=== PATIENT | male | born 1940 | race Caucasian/White ===

== ENCOUNTER 2021-10-27 09:11 | Inpatient (IN) | payer MEDICARE, OTHER ==
[2021-10-27] VITALS (7 sets, daily range): BP systolic 125–139; BP diastolic 66–76
[~2021-10-27] VITALS: Ht 180.3 cm; Wt 49.0 kg
[2021-10-27 10:21] LABS: CLARITY,URINE SL CLOUDY (CLEAR); COLOR,URINE RED (YELLOW); KETONES,URINE 2+ (NEGATIVE); LEUKOCYTE ESTERASE ,URINE NEGATIVE (NEGATIVE); NITRITE,URINE NEGATIVE (NEGATIVE); PROTEIN,URINE DIPSTICK 1+ (NEGATIVE); URINE UROBILINOGEN 1 mg/dL (0.2 - 1)
[2021-10-27 10:22] LABS: BACTERIA,URINE RARE /HPF; RBC,URINE >50 /HPF (0-5)
[2021-10-27] MEDS ORDERED: DOCUSATE SODIUM 100 MG CAP PO PRN (14:15)
[2021-10-27] MEDS ORDERED: ONDANSETRON HCL INJ 2MG/ML 2ML 2 MG/ML VIAL IV PRN (14:15)
[2021-10-27 14:22] LABS: BASOPHILS % 0.3 % (0.0-1.0); EOSINOPHILS % 0.4 % (0.0-6.0); HEMATOCRIT 41.4 % (38.2-49.6); HEMOGLOBIN 14.1 g/dL (14.0-18.0); LYMPHOCYTES # (AUTO) 1.2 (1.0-3.2); LYMPHOCYTES % 15.9 % (18.0-39.1); MEAN CORPUSCULAR HEMOGLOBIN 31.2 pg (28-32); MEAN CORPUSCULAR HGB CONC 34.1 g/dL (31-35); MEAN CORPUSCULAR VOLUME 91.6 fL (81-99); MONOCYTES # (AUTO) 0.7 (0.2-0.8); MONOCYTES % 8.6 % (4.4-11.3); NEUTROPHILS # (AUTO) 5.8 (2.1-6.9); NEUTROPHILS % 74.5 % (38.7-80.0); PLATELET COUNT 179 x10e3/uL (140-360); RED BLOOD COUNT 4.52 x10e6/uL (4.3-5.7)
[2021-10-27 14:38] LABS: ANION GAP 12.9 mmol/L (8-16); CALCIUM 9.6 mg/dL (8.4-10.2); CREATININE, SERUM 0.72 mg/dL (0.72-1.25); POTASSIUM 4.9 mmol/L (3.5-5.1)
[2021-10-27] MEDS: FAMOTIDINE 20 MG TAB PO SCH (16:30)
[2021-10-27] MEDS ORDERED: MELATONIN 3 MG TAB PO PRN (21:00)
[2021-10-27] MEDS: TAMSULOSIN HCL 0.4 MG CAP PO SCH (21:09)
[2021-10-28] VITALS: BP 111/69
[2021-10-28 04:00] VITALS: BP 112/66
[2021-10-28 04:59] LABS: BASOPHILS % 0.3 % (0.0-1.0); EOSINOPHILS # (AUTO) 0.1 (0.0-0.4); EOSINOPHILS % 1.1 % (0.0-6.0); HEMATOCRIT 38.6 % (38.2-49.6); HEMOGLOBIN 13.2 g/dL (14.0-18.0); LYMPHOCYTES # (AUTO) 1.5 (1.0-3.2); LYMPHOCYTES % 20.7 % (18.0-39.1); MEAN CORPUSCULAR HEMOGLOBIN 31.4 pg (28-32); MEAN CORPUSCULAR HGB CONC 34.2 g/dL (31-35); MEAN CORPUSCULAR VOLUME 91.7 fL (81-99); MONOCYTES # (AUTO) 0.7 (0.2-0.8); MONOCYTES % 9.6 % (4.4-11.3); NEUTROPHILS # (AUTO) 4.9 (2.1-6.9); NEUTROPHILS % 67.9 % (38.7-80.0); PLATELET COUNT 160 x10e3/uL (140-360); RED BLOOD COUNT 4.21 x10e6/uL (4.3-5.7); RED CELL DISTRIBUTION WIDTH 12.9 % (11.7-14.4)
[2021-10-28 05:25] LABS: ANION GAP 11.8 mmol/L (8-16); CALCIUM 9.2 mg/dL (8.4-10.2); CREATININE, SERUM 0.65 mg/dL (0.72-1.25); POTASSIUM 3.8 mmol/L (3.5-5.1)
[2021-10-28] MEDS: FAMOTIDINE 20 MG TAB PO SCH ×2 (07:30→16:30)
[2021-10-28 08:35] VITALS: BP 120/62
[2021-10-28] MEDS: MULTIVITAMINS/MINERALS TAB PO SCH (09:00)
[2021-10-28] MEDS ORDERED: SODIUM CHLORIDE 0.9% 250ML 250 ML ONE (09:04)
[2021-10-28] MEDS: CEFTRIAXONE 1 GM in SODIUM CHLORIDE 0.9% 50ML 50 ML IV SCH (10:00)
[2021-10-28 12:13] VITALS: BP 133/68
[2021-10-28] MEDS ORDERED: PROPOFOL IV EMULSION 10 MG/ML 20 ML VIAL ONE (13:06)
[2021-10-28] MEDS ORDERED: EPHEDRINE SULFATE INJ 50 MG/ML VIAL ONE (13:06)
[2021-10-28] MEDS ORDERED: POVIDONE IODINE 0.05% 0.05 % ML PO ONE (13:06)
[2021-10-28] MEDS ORDERED: ONDANSETRON HCL INJ 2MG/ML 2ML 2 MG/ML VIAL ONE (13:06)
[2021-10-28] MEDS ORDERED: LIDOCAINE HCL 2% LOCAL INJ 5 ML SDV VIAL INJ ONE (13:06)
[2021-10-28] MEDS ORDERED: DEXAMETHASONE SOD PHOS INJ 4 MG/ML SDV ONE (13:06)
[2021-10-28] MEDS ORDERED: SEVOFLURANE INHAL SOLN 250 ML PEN BTL ONE (13:06)
[2021-10-28] MEDS ORDERED: PHENYLEPHRINE HCL 1% 10 MG/ML VIAL ONE (13:06)
[2021-10-28] MEDS ORDERED: FENTANYL CITRATE/PF 100MCG/2 ML INJ ONE ×2 (13:09→13:50)
[2021-10-28 16:43] VITALS: BP 114/60
[2021-10-28] MEDS ORDERED: ONDANSETRON HCL 4 MG ORAL DISINTEGRATING TAB PO PRN (18:45)
[2021-10-28] MEDS: ACETAMINOPHEN 325 MG TAB PO PRN (19:53)
[2021-10-28 20:00] VITALS: BP 118/66
[2021-10-28] MEDS ORDERED: TRAMADOL HCL 50 MG TAB PO PRN (20:45)
[2021-10-28] MEDS: TAMSULOSIN HCL 0.4 MG CAP PO SCH (21:00)
[2021-10-29] VITALS (8 sets, daily range): BP systolic 110–134; BP diastolic 59–97
[2021-10-29] MEDS: FAMOTIDINE 20 MG TAB PO SCH ×2 (07:30→16:30)
[2021-10-29] MEDS: MULTIVITAMINS/MINERALS TAB PO SCH (09:00)
[2021-10-29] MEDS: CEFTRIAXONE 1 GM in SODIUM CHLORIDE 0.9% 50ML 50 ML IV SCH (09:00)
[2021-10-29] MEDS ORDERED: ASPIRIN81 MG PO (10:12)
[2021-10-29] MEDS ORDERED: FLOMAX0.4 MG PO (10:12)
[2021-10-29] MEDS ORDERED: ATORVASTATIN CA20 MG PO (10:12)
[2021-10-29] MEDS ORDERED: VITAMIN C500 MG PO (10:12)
[2021-10-29] MEDS ORDERED: ARICEPT5 MG PO (10:12)
[2021-10-29] MEDS: ACETAMINOPHEN 325 MG TAB PO PRN (14:32)
[2021-10-29] MEDS: TAMSULOSIN HCL 0.4 MG CAP PO SCH (20:46)
[2021-10-30] VITALS (7 sets, daily range): BP systolic 111–150; BP diastolic 63–74
[2021-10-30] MEDS: FAMOTIDINE 20 MG TAB PO SCH ×2 (07:30→16:32)
[2021-10-30] MEDS: MULTIVITAMINS/MINERALS TAB PO SCH (08:49)
[2021-10-30] MEDS: CEFTRIAXONE 1 GM in SODIUM CHLORIDE 0.9% 50ML 50 ML IV SCH (08:49)
[2021-10-30] MEDS: FINASTERIDE 5 MG TAB PO SCH (08:50)
[2021-10-30 10:59] LABS: BASOPHILS % 0.4 % (0.0-1.0); EOSINOPHILS # (AUTO) 0.1 (0.0-0.4); EOSINOPHILS % 0.9 % (0.0-6.0); HEMATOCRIT 38.4 % (38.2-49.6); HEMOGLOBIN 12.8 g/dL (14.0-18.0); LYMPHOCYTES # (AUTO) 1.5 (1.0-3.2); LYMPHOCYTES % 18.4 % (18.0-39.1); MEAN CORPUSCULAR HEMOGLOBIN 31.1 pg (28-32); MEAN CORPUSCULAR HGB CONC 33.3 g/dL (31-35); MEAN CORPUSCULAR VOLUME 93.4 fL (81-99); MONOCYTES # (AUTO) 0.9 (0.2-0.8); MONOCYTES % 10.6 % (4.4-11.3); NEUTROPHILS # (AUTO) 5.7 (2.1-6.9); NEUTROPHILS % 69.5 % (38.7-80.0); PLATELET COUNT 166 x10e3/uL (140-360); RED BLOOD COUNT 4.11 x10e6/uL (4.3-5.7); RED CELL DISTRIBUTION WIDTH 13.1 % (11.7-14.4)
[2021-10-30 11:19] LABS: CALCIUM 8.8 mg/dL (8.4-10.2); CREATININE, SERUM 0.66 mg/dL (0.72-1.25)
[2021-10-30] MEDS: TAMSULOSIN HCL 0.4 MG CAP PO SCH (21:10)
[2021-10-31 00:31] VITALS: BP 128/75
[2021-10-31 03:37] VITALS: BP 125/78
[2021-10-31] MEDS: FAMOTIDINE 20 MG TAB PO SCH (05:56)
[2021-10-31 07:55] VITALS: BP 144/70
[2021-10-31 08:25] VITALS: BP 144/70
[2021-10-31] MEDS: FINASTERIDE 5 MG TAB PO SCH (08:31)
[2021-10-31] MEDS: CEFTRIAXONE 1 GM in SODIUM CHLORIDE 0.9% 50ML 50 ML IV SCH (08:31)
[2021-10-31] MEDS: MULTIVITAMINS/MINERALS TAB PO SCH (08:31)
[2021-10-31] MEDS ORDERED: DONEPEZIL HCL 5 MG TAB PO SCH (09:00)
[2021-10-31 11:01] VITALS: BP 141/71
[2021-10-31] MEDS ORDERED: CEPHALEXIN500 MG PO (13:32)
== END 2021-10-31 14:21 | disposition home or self-care (01) | DRG 726 ==
LOC: ER 09:15 → ERHOLD 10:09 → MED/SURG 13:15 → OBSVTOIN 10-29 07:50
PROVIDERS: ADMIT Internal Medicine; ATTEND Internal Medicine
PROC: BT141ZZ Fluoroscopy of Kidneys, Ureters and Bladder using Low Osmolar Contrast (ICD-10-PCS; principal; 2021-10-28 12:59)
DX: N40.1 Benign prostatic hyperplasia with lower urinary tract symptoms (principal); N13.8 Other obstructive and reflux uropathy; N39.0 Urinary tract infection, site not specified; Z68.1 Body mass index [BMI] 19.9 or less, adult; R33.8 Other retention of urine; R63.6 Underweight; R13.10 Dysphagia, unspecified; Z20.822 Contact with and (suspected) exposure to COVID-19; N32.81 Overactive bladder; N28.1 Cyst of kidney, acquired; R39.14 Feeling of incomplete bladder emptying; R39.15 Urgency of urination; D64.9 Anemia, unspecified; R31.9 Hematuria, unspecified
CPT/HCPCS: 36415; 51798; 74230; 74420; 80048; 81001; 84134; 85025; 87086; 93005; 94799; 97139; 99284; C1758; G0378; J0696; J1100; J2001; J2370; J2405; J3010; J7050; U0002